=== PATIENT | female | born 1985 | race Caucasian/White ===

== ENCOUNTER 2018-02-22 10:59 | Emergency (ER) | END 2018-02-22 14:17 | disposition home or self-care (01) ==

== ENCOUNTER 2018-08-28 10:35 | Emergency (ER) | payer OTHER ==
[~2018-08-28] VITALS: Ht 157.5 cm; Wt 74.1 kg
[~2018-08-28 10:35] MED LIST: ACET500C5 PO; AZIT250T PO; BENZ1LOZ52 MM; CARB15DR50 LEFT EAR; CYCL10TA7 PO; D-ME473S18 PO; FER325 PO; HYDR-3498 PO; IBUP-1542 PO; NAPR-985 PO; NITR-58 PO; PREN1TAB31 PO; TRAM50TA2 PO
[2018-08-28 10:42] VITALS: BP 117/66; PULSE 91; RESP 18; Ht 157.5 cm; Wt 74.1 kg
[2018-08-28] MEDS ORDERED: MED4DP PO (11:57)
[2018-08-28] MEDS ORDERED: BENZ-6 PO (11:57)
[2018-08-28] MEDS ORDERED: D-ME473S2 PO (11:57)
[2018-08-28] MEDS ORDERED: ALBU8.5H8 INH (11:57)
--- NOTE | 2018-08-28 12:34 | ERD ---
ER Documentation Chief Complaint Chief Complaint COUGH X8 DAYS HPI 33-year-old female presented to ER for cough x8 days. Patient denies fever chills body aches. Patient states she has a persistent with little to no mucous production. Patient has been taking DayQuil and NyQuil with no relief. Patient denies history of asthma and denies tobacco use. ROS All systems reviewed and are negative except as per history of present illness. Medications Home Meds Active Scripts Albuterol Sulfate* (Proair HFA*) 8.5 Gm Hfa.aer.ad, 2 PUFF INH Q4, #1 INHALER Prov:MILENA MCCARTY PA-C 08/28/18 Methylprednisolone* (Medrol* DOSE PACK) 4 Mg/Dose-Pack Tab.ds.pk, 4 MG PO . DIRECTED, #1 PACKET Prov:MILENA MCCARTY PA-C 08/28/18 Benzonatate* (Tessalon Perle*) 100 Mg Capsule, 100 MG PO Q8H PRN for COUGH, #30 CAP Prov:MILENA MCCARTY PA-C 08/28/18 Dextromethorphan Hb-Promethazine Hcl* (Promethazine DM* Syrup) 473 Ml Syrup, 5 ML PO Q6 PRN for COUGH, #100 ML Prov:MILENA MCCARTY PA-C 08/28/18 Carbamide Peroxide* (Debrox*) 6.5% - 15 Ml Drops, 10 DROP LEFT EAR BID, #1 BOTTLE Prov:KULWINDER VIERA PA-C 05/07/18 Ibuprofen* (Motrin*) 600 Mg Tab, 600 MG PO Q6, #30 TAB Prov:KULWINDER VIERA PA-C 05/07/18 Benzocaine/Menthol* (Cepacol* Sore Throat Lozenges) 1 Each Lozenge, 1 EACH MM q2h PRN for SORE THROAT, #20 LOZENGE Prov:KULWINDER VIERA PA-C 05/07/18 Acetaminophen* (Tylophen*) 500 Mg Capsule, 1 CAP PO Q6H PRN for PAIN AND OR ELEVATED TEMP, #20 CAP Prov:KULWINDER VIERA PA-C 05/07/18 Tramadol HCl (Tramadol HCl) 50 Mg Tablet, 50 MG PO Q6 PRN for PAIN, #12 TAB Prov:LARS ROUSE PA-C 02/22/18 Naproxen* (Naprosyn*) 500 Mg Tablet, 500 MG PO BID PRN for PAIN AND/OR INFLAMMATION, #30 TAB Prov:LARS ROUSE PA-C 02/22/18 Cyclobenzaprine Hcl* (Cyclobenzaprine Hcl*) 10 Mg Tablet, 10 MG PO QHS, #7 TAB Prov:LARS ROUSE PA-C 02/22/18 Nitrofurantoin Monohyd Macrocr* (Macrobid*) 100 Mg Capsr, 100 MG PO BID for 7 Days, CAP Prov:LARS ROUSE PA-C 02/22/18 Dextromethorphan Hb-Promethazine Hcl (Promethazine DM Syrup) 473 Ml Syrup, 10 ML PO Q6H PRN for COUGH, #4 OZ Prov:GABRIELA VELA 03/03/16 Azithromycin* (Zithromax*) 250 Mg Tablet, 250 MG PO .MARLYNCK DIRECTED, #6 TAB TAKE 500 MG (2 TABS) THE FIRST DAY THEN 250 MG (1 TAB) DAYS 2-5 Prov:GABRIELA VELA 03/03/16 Ibuprofen* (Motrin*) 600 Mg Tab, 600 MG PO Q6, #14 TAB Prov:CANDY ENRIQUE PA-C 05/22/15 Hydrocodone Bit-Acetaminophen* ([place]*) 5-325 Mg Tab, 1 TAB PO Q6 PRN for PAIN, #7 TAB Prov:CANDY ENRIQUE PA-C 05/22/15 Ibuprofen* (Motrin*) 600 Mg Tab, 600 MG PO Q6, #20 TAB Prov:DORA FOOTE MD 09/22/14 Reported Medications Ferrous Sulfate* (Ferrous Sulfate*) 325 Mg Tabec, 325 MG PO DAILY, TAB 03/17/14 Vits #90-Iron Fum-FA ( Formula) 1 Each Tablet, 1 TAB PO DAILY, TAB 03/17/14 Allergies Allergies: Coded Allergies: Penicillins (Verified Allergy, Unknown, 05/07/18) PMhx/Soc History of Surgery: Yes (d and c) Anesthesia Reaction: No Hx Neurological Disorder: No Hx Respiratory Disorders: No Hx Cardiac Disorders: No Hx Psychiatric Problems: No Hx Miscellaneous Medical Probl: No Hx Alcohol Use: No Hx Substance Use: No Hx Tobacco Use: No Physical Exam Vitals Vital Signs Date Temp Pulse Resp B/P (MAP) Pulse Ox O2 O2 Flow FiO2 Time Delivery Rate 08/28/18 98.9 91 18 117/66 98 10:42 (83) Physical Exam Const: No acute distress Eyes: Normal Conjunctiva ENT: Normal External Ears, Nose and Mouth. Neck: Full range of motion. No meningismus. Resp: Patient has dry cough with all lung gloria clear to auscultation. Cardio: Regular rate and rhythm, no murmurs Abd: Soft, non tender, non distended. Normal bowel sounds Skin: No petechiae or rashes Back: No midline or flank tenderness Procedures/[facility] ER course: 33-year-old female presented to ER with cough x8 days. Patient denies fever chills body aches nausea vomiting. Patient's physical exam was unremarkable patient did have dry cough during examination but lungs were clear bilateral. Patient's vitals are all within normal limits and O2 sats are 98%. Patient denies any chemical exposure or history of asthma or any aggravating factors. Patient was advised that this is a viral illness and was given prescription for promethazine DM syrup, albuterol inhaler, Medrol Dosepak, and Tessalon cough drops. Patient was advised to increase fluid intake and follow-up with primary care provider in 1 to 2 days regarding this visit. [facility] Patient presented to the emergency room for persistent cough. Patient denies fever, chills, body aches and lungs were clear on auscultation. Patient's physical exam was unremarkable. Patient has no history of asthma. I have low suspicion for pneumonia, meningitis, sinusitis, otitis externa, acute otitis media, strep pharyngitis, epiglottitis or peritonsillar abscess. At this time it is unnecessary to expose the patient to unnecessary radiology exposure. Patient's history and physical exam is relevant for viral illness and no need for antibiotics.. Patient will be sent home with promethazine, albuterol, Medro l Dosepak, Tessalon cough drops to alleviate persistent cough. Patient was advised if symptoms worsen to return to the ER. Patient was advised to follow- up with primary care provider regarding this visit. Departure Diagnosis: Primary Impression: Acute bronchitis Bronchitis organism: unspecified organism Qualified Codes: J20.9 - Acute bronchitis, unspecified Condition: Stable Patient Instructions: Cough, Chronic, Uncertain Cause, (Adult) MILENA MCCARTY PA-C August 28, 2018 12:13
== END 2018-08-28 12:35 | disposition home or self-care (01) ==
LOC: FTE 10:35
DX: J20.9 Acute bronchitis, unspecified (principal)
CPT/HCPCS: 99283

== ENCOUNTER 2018-10-11 16:43 | Emergency (ER) | payer OTHER ==
[~2018-10-11] VITALS: Ht 160 cm; Wt 73.2 kg
[~2018-10-11 16:43] MED LIST changes: +ALBU8.5H8 INH; +BENZ-6 PO; +D-ME473S2 PO; +MED4DP PO
[2018-10-11 16:47] VITALS: Ht 160 cm; Wt 73.2 kg
[2018-10-11] MEDS ORDERED: IBUPROFEN 600 MG TAB PO ONE (18:00)
--- NOTE | 2018-10-11 18:08 | ERD ---
ER Documentation Chief Complaint Chief Complaint lt side headache , no neuro deficits , see note HPI This is a 33-year-old female patient who presents emergency room with complaint of left sided headache since yesterday. States that she has a history of migraines although she has not had a migraine in over a year. States this is the same type of migraine pain as she has had in the past. Denies visual disturbance, no nausea, no vomiting, no fevers, no trauma. Patient does not smoke, she is on Depo-Provera. She has not taken any ibuprofen or Tylenol. She has clear speech, steady gait at time of evaluation. ROS All systems reviewed and are negative except as per history of present illness. Medications Home Meds Active Scripts Albuterol Sulfate* (Proair HFA*) 8.5 Gm Hfa.aer.ad, 2 PUFF INH Q4, #1 INHALER Prov:MILENA MCCARTY PA-C 08/28/18 Methylprednisolone* (Medrol* DOSE PACK) 4 Mg/Dose-Pack Tab.ds.pk, 4 MG PO . DIRECTED, #1 PACKET Prov:MILENA MCCARTY PA-C 08/28/18 Benzonatate* (Tessalon Perle*) 100 Mg Capsule, 100 MG PO Q8H PRN for COUGH, #30 CAP Prov:MILENA MCCARTY PA-C 08/28/18 Dextromethorphan Hb-Promethazine Hcl* (Promethazine DM* Syrup) 473 Ml Syrup, 5 ML PO Q6 PRN for COUGH, #100 ML Prov:MILENA MCCARTY PA-C 08/28/18 Carbamide Peroxide* (Debrox*) 6.5% - 15 Ml Drops, 10 DROP LEFT EAR BID, #1 BOTTLE Prov:KULWINDER VIERA PA-C 05/07/18 Ibuprofen* (Motrin*) 600 Mg Tab, 600 MG PO Q6, #30 TAB Prov:KULWINDER VIERA PA-C 05/07/18 Benzocaine/Menthol* (Cepacol* Sore Throat Lozenges) 1 Each Lozenge, 1 EACH MM q2h PRN for SORE THROAT, #20 LOZENGE Prov:KULWINDER VIERA PA-C 05/07/18 Acetaminophen* (Tylophen*) 500 Mg Capsule, 1 CAP PO Q6H PRN for PAIN AND OR ELEVATED TEMP, #20 CAP Prov:KULWINDER VIERA PA-C 05/07/18 Tramadol HCl (Tramadol HCl) 50 Mg Tablet, 50 MG PO Q6 PRN for PAIN, #12 TAB Prov:LARS ROUSE PA-C 02/22/18 Naproxen* (Naprosyn*) 500 Mg Tablet, 500 MG PO BID PRN for PAIN AND/OR INFLAMMATION, #30 TAB Prov:LARS ROUSE PA-C 02/22/18 Cyclobenzaprine Hcl* (Cyclobenzaprine Hcl*) 10 Mg Tablet, 10 MG PO QHS, #7 TAB Prov:LARS ROUSE PA-C 02/22/18 Nitrofurantoin Monohyd Macrocr* (Macrobid*) 100 Mg Capsr, 100 MG PO BID for 7 Days, CAP Prov:LARS ROUSE PA-C 02/22/18 Dextromethorphan Hb-Promethazine Hcl (Promethazine DM Syrup) 473 Ml Syrup, 10 ML PO Q6H PRN for COUGH, #4 OZ Prov:GABRIELA VELA 03/03/16 Azithromycin* (Zithromax*) 250 Mg Tablet, 250 MG PO .GISELLE DIRECTED, #6 TAB TAKE 500 MG (2 TABS) THE FIRST DAY THEN 250 MG (1 TAB) DAYS 2-5 Prov:GABRIELA VELA 03/03/16 Ibuprofen* (Motrin*) 600 Mg Tab, 600 MG PO Q6, #14 TAB Prov:CANDY ENRIQUE PA-C 05/22/15 Hydrocodone Bit-Acetaminophen* ([place]*) 5-325 Mg Tab, 1 TAB PO Q6 PRN for PAIN, #7 TAB Prov:CANDY ENRIQUE PA-C 05/22/15 Ibuprofen* (Motrin*) 600 Mg Tab, 600 MG PO Q6, #20 TAB Prov:DORA FOOTE MD 09/22/14 Reported Medications Ferrous Sulfate* (Ferrous Sulfate*) 325 Mg Tabec, 325 MG PO DAILY, TAB 03/17/14 Vits #90-Iron Fum-FA ( Formula) 1 Each Tablet, 1 TAB PO DAILY, TAB 03/17/14 Allergies Allergies: Coded Allergies: Penicillins (Verified Allergy, Unknown, 05/07/18) PMhx/Soc History of Surgery: Yes (d and c) Anesthesia Reaction: No Hx Neurological Disorder: No Hx Respiratory Disorders: No Hx Cardiac Disorders: No Hx Psychiatric Problems: No Hx Miscellaneous Medical Probl: Yes (MIGRAINES) Hx Alcohol Use: No Hx Substance Use: No Hx Tobacco Use: No Smoking Status: Never smoker Physical Exam Vitals Vital Signs Date Temp Pulse Resp B/P (MAP) Pulse Ox O2 O2 Flow FiO2 Time Delivery Rate 10/11/18 98.9 92 18 108/62 100 Room Air 18:55 (77) 10/11/18 98.1 116 18 142/67 98 16:47 (92) Physical Exam Const: No acute distress Head: No bruising, no swelling, no hematoma, no crepitus Eyes: Normal Conjunctiva. PERRL, EOMI ENT: Normal External Ears, TM clear BL, Nose without congestion or drainage. Pharynx pink, moist, no oral injury. No willson signs. Neck: Full range of motion. No meningismus. No cervical spinal tenderness. No lymphadenopathy Resp: Clear to auscultation bilaterally, no rales, rhonchi. Chest rise equal bilaterally. Cardio: Regular rate and rhythm, no murmurs Abd: Soft, non tender, non distended. Normal bowel sounds. No bruising. Skin: No petechiae or rashes, no abrasions, no hematomas. Back: No midline or flank tenderness, no point tenderness to spine, FROM Ext: No cyanosis, or edema, no deformities Neur: Awake and alert, CN II-XII intact, steady gait, clear speech, no pronator drift, equal smile, BL [employer] market consultant 5/5, sensation intact BL, negative Romberg, negative [id number] test. Psych: Normal Mood and Affect Results 24 hrs Laboratory Tests Test 10/11/18 18:21 Bedside Urine pH (LAB) 7.0 Bedside Urine Protein (LAB) Negative Bedside Urine Glucose (UA) Negative Bedside Urine Ketones (LAB) Negative Bedside Urine Blood 1+ Bedside Urine Nitrite (LAB) Negative Bedside Urine Leukocyte Esterase (L 1+ POC Beta HCG, Qualitative NEGATIVE Current Medications Medications Dose Sig/Bel[place]an Start Time Status Last (Trade) Ordered Route PRN Stop Time Admin Dose Reason Admin Ibuprofen 600 mg ONCE ONCE 10/11/18 DC 10/11/18 (Motrin) PO 18:00 18:15 10/11/18 18:01 Procedures/MDM PROCEDURES/MDM -Medications: Ibuprofen Patient tolerated medication well with no adverse reactions. Patient reported improvement in pain. MDM: This is a 33-year-old female patient presents emergency room with complaint of headache since yesterday. Patient has history of migraines and states that this feels the same as her prior headaches. She has not been trying Tylenol or ibuprofen. Patient was provided with ibuprofen while in the emergency department and reports resolution of her headache. The patient was well-appearing with VSS and without neurological deficits at time of reevaluation and discharge. Clinical and diagnostic exam not suggestive of infection, intracranial process, SAH, SDH, neoplasm, meningitis, encephalitis, aneurysm, thrombus, temporal arteritis, sinusitis. The patient has been provided with instructions on self-care including use of analgesia, reducing triggers, and need for close follow-up with primary care physician within 1-2 days for reevaluation. The patient has been instructed to return immediately for worsening symptoms, change in pattern of current symptoms, or other acute problems. DISPOSITION and PLAN: RX: Ibuprofen The patient has been discharge home to follow-up with community physician. Departure Diagnosis: Primary Impression: Headache Headache type: tension-type Headache chronicity pattern: chronic headache Intractability: not intractable Qualified Codes: G44.229 - Chronic tension-type headache, not intractable Condition: Stable LEON FELTON NP Oct 11, 2018 18:08
[2018-10-11 18:55] VITALS: BP 108/62; PULSE 92; RESP 18
== END 2018-10-11 18:56 | disposition home or self-care (01) ==
LOC: FTE 16:43
DX: G44.229 Chronic tension-type headache, not intractable (principal)
CPT/HCPCS: 81003; 81025; Z7610